=== PATIENT | female | born 1995 | race Caucasian/White ===

== ENCOUNTER 2018-01-15 11:35 | Emergency (ER) | payer OTHER ==
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
--- NOTE | 2018-01-17 07:02 | CR ---
Abdominal series: Supine and upright views of the abdomen were obtained as well as frontal view of the chest. Comparison: No prior study. Heart size and mediastinum are normal. Lungs are clear. Bowel gas pattern is normal. Minimal scoliosis is seen within the spine. No abnormal calcifications or soft tissue abnormality is seen. Impression: 1. Nothing acute is seen on abdominal series. Diagnostic code #2
== END 2018-01-15 14:40 | disposition home or self-care (01) ==
LOC: JD.ED 11:35
DX: K59.09 Other constipation (principal); Z88.0 Allergy status to penicillin; Z88.2 Allergy status to sulfonamides; Z79.899 Other long term (current) drug therapy
CPT/HCPCS: 36415; 74022; 74022-26; 80053; 81001; 83690; 84703; 85025; 99283; 99284

== ENCOUNTER 2020-03-13 15:47 | Emergency (ER) | payer MEDICAID, OTHER ==
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
== END 2020-03-13 17:00 | disposition home or self-care (01) ==
LOC: JD.ED 15:47
DX: O24.419 Gestational diabetes mellitus in pregnancy, unspecified control (principal); Z88.0 Allergy status to penicillin; Z88.2 Allergy status to sulfonamides; Z79.4 Long term (current) use of insulin
CPT/HCPCS: 82962; 99283; 99284

== ENCOUNTER 2020-07-15 16:12 | Inpatient (IN) | payer MEDICAID ==
[2020-07-15] MEDS ORDERED: Misoprostol 25 MCG (1/4 of 100 MCG) Tab VAG ONE (16:40)
[2020-07-15] MEDS ORDERED: Ondansetron 4 MG/2 ML SDV IVPUSH PRN (16:42)
[2020-07-15] MEDS ORDERED: Nalbuphine 10 MG/1 ML Vial IVPUSH PRN (16:42)
[2020-07-15] MEDS ORDERED: Misoprostol 25 MCG (1/4 of 100 MCG) Tab VAG PRN (16:42)
[2020-07-15] MEDS ORDERED: Sodium Chloride 0.9% 10 ML Syringe FLUSH PRN (16:42)
[2020-07-15] MEDS ORDERED: Oxytocin/Lactated Ringers 10 UNIT/1,000 ML BAG IV SCH ×2 (16:45)
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
[2020-07-15] MEDS ORDERED: ePHEDrine 50 MG/ML SDV IVPUSH PRN (17:57)
[2020-07-15] MEDS ORDERED: diphenhydrAMINE 50 MG/ML SDV IVPUSH PRN (17:57)
[2020-07-15] MEDS ORDERED: fentaNYL 100 MCG/2 ML SDV EPIDUR PRN (17:57)
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
[2020-07-15] MEDS: Lactated Ringers 1,000 ML IV SCH (21:50)
[2020-07-16] MEDS: Lactated Ringers 1,000 ML IV SCH ×4 (03:48→13:02)
[2020-07-16] MEDS: Bupivacaine/fentaNYL/NS 100 ML Bag EPIDUR PRN ×2 (04:21→13:02)
--- NOTE | 2020-07-16 08:36 | PCM.PNLD ---
Labor Progress Note - VS & Meds Vital Signs: Last Vital Signs Temp 36.8 C 07/15/20 16:55 Pulse 93 07/15/20 16:55 Resp 16 07/15/20 16:55 BP 111/70 07/15/20 16:55 Pulse Ox 99 07/15/20 16:55 Active Medications: Current Medications Diphenhydramine HCl (Benadryl) 25 mg IVPUSH Q6H PRN PRN Reason: pruritis Ephedrine Sulfate (Ephedrine Sulfate) 5 mg IVPUSH ASDIRECTED PRN PRN Reason: Hypotension Fentanyl (Sublimaze) 100 mcg EPIDUR Q3H PRN PRN Reason: Pain Last Admin: 07/16/20 04:20 Dose: 100 mcg Documented by: Fentanyl/Bupivacaine HCl (Fentanyl/Bupivacaine/Ns 2 Mcg-0.125% 100 Ml) 100 ml EPIDUR ASDIRECTED PRN PRN Reason: Pain Last Admin: 07/16/20 04:21 Dose: 100 ml Documented by: Lactated Ringer's (Ringers, Lactated) 1,000 mls @ 40 mls/hr IV ASDIRECTED ANDREW Last Admin: 07/16/20 04:22 Dose: 40 mls/hr Documented by: Oxytocin/Lactated Ringer's (Pitocin In Lr 10 Units/1,000 Ml) 10 unit in 1,000 mls @ 12 mls/hr IV TITRATE ANDREW; Protocol Last Titration: 07/16/20 05:55 Dose: 1 munits/min, 6 mls/hr Documented by: Oxytocin/Lactated Ringer's (Pitocin In Lr 10 Units/1,000 Ml) 10 unit in 1,000 mls @ 500 mls/hr IV .CONTINUOUS ANDREW Misoprostol (Cytotec) 25 mcg VAG Q4H PRN PRN Reason: cervical ripening Last Admin: 07/15/20 17:09 Dose: 25 mcg Documented by: Nalbuphine HCl (Nubain) 10 mg IVPUSH Q2H PRN PRN Reason: Pain Ondansetron HCl (Zofran) 4 mg IVPUSH Q4H PRN PRN Reason: Nausea/Vomiting Last Admin: 07/16/20 03:18 Dose: 4 mg Documented by: Sodium Chloride (Saline Flush) 10 ml FLUSH ASDIRECTED PRN PRN Reason: Keep Vein Open Discontinued Medications Misoprostol (Cytotec) 25 mcg VAG ONETIME ONE Stop: 07/15/20 16:41 Last Admin: 07/15/20 17:09 Dose: Not Given Documented by: - Uterine Contractions Uterine Monitoring Mode: External [place] Contraction Intensity: Moderate to Strong Uterine Resting Tone: Soft - Monitoring Monitor Mode: External Ultrasound Heart Rate (FHR) Baseline: 125 Heart Rate (FHR) Variability: Moderate (6-25 bmp) Accelerations: Present, 15x15 Decelerations: None Strip Review: Category I - Vaginal Exam Dilation (cm): 5-6 Effacement (Percent): 80 Station: -1 Cervical Position: Midposition - Labor Progress (Free Text) Labor Progress: Doing well this AM. Comfortable with epidural in place. Pitocin at 3. Was about 3 cm at 0215 when ROM performed. Now about 5-6. Continue present management. Blood sugars 100's-120
--- NOTE | 2020-07-16 14:23 | PCM.PNLD ---
Labor Progress Note - VS & Meds Vital Signs: Last Vital Signs Temp 36.8 C 07/15/20 16:55 Pulse 93 07/15/20 16:55 Resp 16 07/15/20 16:55 BP 111/70 07/15/20 16:55 Pulse Ox 99 07/15/20 16:55 Active Medications: Current Medications Diphenhydramine HCl (Benadryl) 25 mg IVPUSH Q6H PRN PRN Reason: pruritis Ephedrine Sulfate (Ephedrine Sulfate) 5 mg IVPUSH ASDIRECTED PRN PRN Reason: Hypotension Fentanyl (Sublimaze) 100 mcg EPIDUR Q3H PRN PRN Reason: Pain Last Admin: 07/16/20 04:20 Dose: 100 mcg Documented by: Fentanyl/Bupivacaine HCl (Fentanyl/Bupivacaine/Ns 2 Mcg-0.125% 100 Ml) 100 ml EPIDUR ASDIRECTED PRN PRN Reason: Pain Last Admin: 07/16/20 13:02 Dose: 100 ml Documented by: Lactated Ringer's (Ringers, Lactated) 1,000 mls @ 40 mls/hr IV ASDIRECTED ANDREW Last Admin: 07/16/20 13:02 Dose: 40 mls/hr Documented by: Oxytocin/Lactated Ringer's (Pitocin In Lr 10 Units/1,000 Ml) 10 unit in 1,000 mls @ 12 mls/hr IV TITRATE ANDREW; Protocol Last Titration: 07/16/20 13:04 Dose: 7 munits/min, 42 mls/hr Documented by: Oxytocin/Lactated Ringer's (Pitocin In Lr 10 Units/1,000 Ml) 10 unit in 1,000 mls @ 500 mls/hr IV .CONTINUOUS ANDREW Misoprostol (Cytotec) 25 mcg VAG Q4H PRN PRN Reason: cervical ripening Last Admin: 07/15/20 17:09 Dose: 25 mcg Documented by: Nalbuphine HCl (Nubain) 10 mg IVPUSH Q2H PRN PRN Reason: Pain Ondansetron HCl (Zofran) 4 mg IVPUSH Q4H PRN PRN Reason: Nausea/Vomiting Last Admin: 07/16/20 03:18 Dose: 4 mg Documented by: Sodium Chloride (Saline Flush) 10 ml FLUSH ASDIRECTED PRN PRN Reason: Keep Vein Open Discontinued Medications Misoprostol (Cytotec) 25 mcg VAG ONETIME ONE Stop: 07/15/20 16:41 Last Admin: 07/15/20 17:09 Dose: Not Given Documented by: - Uterine Contractions Uterine Monitoring Mode: External [place] Contraction Intensity: Moderate to Strong Uterine Resting Tone: Soft - Monitoring Monitor Mode: External Ultrasound Heart Rate (FHR) Baseline: 125 Heart Rate (FHR) Variability: Moderate (6-25 bmp) Accelerations: Present, 15x15 Decelerations: Early, Late, Intermittent (<50% x 20 min) Strip Review: Category II - Vaginal Exam Dilation (cm): 8-9 Effacement (Percent): 90 Station: 1 Cervical Position: Anterior - Labor Progress (Free Text) Labor Progress: Patient was pat pitocin of 9. Had a few prolonged decelerations into the 90's. Pitocin decreased. recovery noted. IUPC placed to better titrate medication. Reviewed findings with patient. Will continue to work towards a vaginal delivery
--- NOTE | 2020-07-16 16:28 | PCM.DEL ---
L & D Note - General Info Date of Service: 07/16/20 - Delivery Note Labor: Induced by ARM, Induced by Oxytocin Cervical Ripening Method: Misoprostil Delivery Outcome: Livebirth Delivery Method: Spontaneous Vaginal Delivery-Single Infant Delivery Mode: Spontaneous Nuchal Cord: None Anesthesia Type: Epidural Amniotic Fluid Description: Clear Episiotomy Type: None Laceration: 2nd Degree Suture type: Vicryl Suture size: 2-0 Placenta: Intact, Spontaneous Cord: 3 Vessels Estimated Blood Loss: 200 Resuscitation Needed: Yes : Bulb Syringe, Stimulated, Warmed, [place] Used, Warmer Used Delivery Comments (Free Text/Narrative):: The patient was pushing in the dorsal lithotomy position. Sterile vaginal exam complete/complete/+3 station. head in ROApresentation. Maternal pushing effort was good and the pelvis was felt to be adequate for an instrument assisted delivery. Given recurrent deep variables into the 70's the decision was made to proceed with vacuum assisted vaginal delivery. The mushroom cup was placed without difficulty with care to avoid the vaginal side campos at 1609. Total pressure applied 550 mm hg over 2 contractions. Total pop offs 0. Suction was removed following delivery of the head. No nuchal cord. The remainder of the infant delivered without difficulty at 1612. The umbilical cord was clamped and cut and the was taken to warmer for assessment. Cord gas segment obtained. Cord blood obtained. Placenta allowed time to separate and expelled intact. Inspection of the perineum following delivery with a 2nd degree laceration. This was repaired with a running 2-0 vicryl in the typical fashion Arterial 7.17 Venous 7.19 Vacuum Extractor Progress Note - Alternative Labor Strategies Considered Alternative Labor Strategies Considered:: Reports: Yes Strategies Considered:: Reports: Contraction Intensity Adequate, Position Changes Used to Facilitate Rotation & Descent, Empty Bladder Indications Considered:: Reports: Yes Indications:: Reports: Suspicion of Immediate or Potential Compromise Time Out:: Reports: Yes - Patient Prepared Patient Prepared:: Reports: Yes Informed Consent:: Reports: Verbal Risks: Reports: Yes Risks Include:: Reports: Laceration, Shoulder Dystocia, Maternal Injury, Other ( injury) Anesthesia/Analgesia Adequate:: Reports: Yes - Probability of Success High Probability of Success:: Reports: Yes Weight Estimated:: Reports: AGA Patient Diabetic:: Reports: Yes Pelvis Adequate:: Reports: Yes Position:: ZAYDA Asynclitic:: Reports: No Station:: +3 - Application Time Maximum Application Time & Number of Pop-Offs Predetermined:: Reports: Yes Maximum Pressure Maintained in [place] (cm Hg):: 550 Total Application Time (min): *max=20min: 3 Number of Times Cup Disengaged:: 0 Type of Vacuum Used:: Reports: Cup: Mushroom type Vacuum Extraction: Successful - Exit Strategy Exit strategy available:: Reports: Yes and resuscitation teams readily available:: Reports: Yes - General Info Date of Service: 07/16/20 - Patient Data Vitals - Most Recent: Last Vital Signs Temp 36.8 C 07/15/20 16:55 Pulse 93 07/15/20 16:55 Resp 16 07/15/20 16:55 BP 111/70 07/15/20 16:55 Pulse Ox 99 07/15/20 16:55 Weight - Most Recent: 55.338 kg I&O - Last 24 Hours: Intake & Output 07/16/20 07/16/20 07/16/20 06:59 14:59 22:59 Intake Total 1999 Balance 1999 - Problem List & Annotations (1) 37 weeks gestation of SNOMED Code(s): 84358472 Code(s): Z3A.37 - 37 WEEKS GESTATION OF Status: Acute Current Visit: Yes (2) Type 2 diabetes mellitus SNOMED Code(s): 27123906 Code(s): E11.9 - TYPE 2 DIABETES MELLITUS WITHOUT COMPLICATIONS Status: Acute Current Visit: Yes Qualifiers: Diabetes mellitus intermediate accountant insulin use: without intermediate accountant use Diabetes mellitus complication status: without complication Qualified Code(s): E11.9 - Type 2 diabetes mellitus without complications (3) History of opioid abuse SNOMED Code(s): 746993084 Code(s): F11.11 - OPIOID ABUSE, IN REMISSION Status: Acute Current Visit: Yes (4) Rubella non-immune status, antepartum SNOMED Code(s): 811528311 Code(s): O99.891 - OTH DISEASES AND CONDITIONS COMPLICATING ; Z28.3 - UNDERIMMUNIZATION STATUS Status: Acute Current Visit: Yes (5) Non-reassuring heart rate or rhythm affecting mother SNOMED Code(s): 59994341, 933508561 Code(s): O36.8390 - MATERN CARE FOR ABNLT FETL HRT RATE OR RHYM, UNSP TRI, UNSP Status: Acute Current Visit: Yes (6) Vacuum-assisted vaginal delivery SNOMED Code(s): 89296264699922020 Code(s): Z37.9 - OUTCOME OF DELIVERY, UNSPECIFIED Status: Acute Current Visit: Yes - Problem List Review Problem List Initiated/Reviewed/Updated: Yes - My Orders Last 24 Hours: My Active Orders 07/15/20 16:42 Patient Status [ADT] Routine Communication Order [RC] ASDIRECTED Communication Order [RC] ASDIRECTED Communication Order [RC] ASDIRECTED Heart Tones [RC] ASDIRECTED Monitoring [RC] INTERMITTENT Notify Provider [RC] ASDIRECTED Notify Provider [RC] PFP Notify Provider [RC] PRN Peripheral IV Care [RC] . DIRECTED Up ad Jessica [RC] ASDIRECTED Vaginal Exam [RC] ASDIRECTED Vital Signs [RC] ASDIRECTED Nalbuphine [Nubain] 10 mg IVPUSH Q2H PRN Ondansetron [Zofran] 4 mg IVPUSH Q4H PRN Sodium Chloride 0.9% [Saline Flush] 10 ml FLUSH ASDIRECTED PRN miSOPROStoL [Cytotec] 25 mcg VAG Q4H PRN Electronic Heart Tones Ext w TOCO [WOMSER] Routine Electronic Heart Tones Internal [WOMSER] Per Unit Routine Peripheral IV Insertion Adult [OM.PC] Routine Resuscitation Status Routine 07/15/20 16:44 Blood Glucose Check, Bedside [RC] Q4H 07/15/20 16:45 Lactated Ringers [Ringers, Lactated] 1,000 ml IV ASDIRECTED Oxytocin/Lactated Ringers [Pitocin in LR 10 Units/1,000 ML] 10 unit in 1,000 ml IV .CONTINUOUS Oxytocin/Lactated Ringers [Pitocin in LR 10 Units/1,000 ML] 10 unit in 1,000 ml IV TITRATE Medication Administration Instruction [OM.PC] ASDIRECTED 07/15/20 Dinner Regular Diet [DIET] - Assessment Assessment:: PPD#0 - Plan Plan:: * Routine cares * Breast feeding * Discharge home in 1-2 days
[2020-07-16] MEDS ORDERED: Docusate Sodium 100 MG Cap PO PRN (17:12)
[2020-07-16] MEDS ORDERED: Benzocaine/Menthol 20%-0.5% Spray 56 GM Canister TOP PRN (17:12)
[2020-07-16] MEDS ORDERED: Witch Hazel Medicated Pads 40/Jar TOP PRN (17:12)
[2020-07-16] MEDS: Ibuprofen 600 MG Tab PO PRN (18:01)
--- NOTE | 2020-07-16 19:16 | PCM48HPAN ---
Post Anesthesia Note - EVALUATION WITHIN 48HRS OF ANESTHETIC Vital Signs in Normal Range: Yes Patient Participated in Evaluation: Yes Respiratory Function Stable: Yes Airway Patent: Yes Cardiovascular Function Stable: Yes Hydration Status Stable: Yes Pain Control Satisfactory: Yes Nausea and Vomiting Control Satisfactory: Yes Mental Status Recovered: Yes Vital Signs: Last Vital Signs Temp 36.8 C 07/15/20 16:55 Pulse 93 07/15/20 16:55 Resp 16 07/15/20 16:55 BP 111/70 07/15/20 16:55 Pulse Ox 99 07/15/20 16:55
[2020-07-17] MEDS: Ibuprofen 600 MG Tab PO PRN ×5 (00:50→21:31)
[2020-07-17] MEDS ORDERED: Bupivacaine 0.25% 10 ML SDV ONE (06:00)
--- NOTE | 2020-07-17 10:31 | PCM.SN.2 ---
- Free Text/Narrative Note: exam Afebrile, chest clear, uterus at umbilicus -1. No heavy vaginal bleeding. No leg cramping.
[2020-07-17] MEDS: Acetaminophen 325 MG Tab PO PRN (18:36)
[2020-07-18] MEDS: Ibuprofen 600 MG Tab PO PRN ×3 (01:27→14:44)
--- NOTE | 2020-07-18 10:59 | PCM.DCSUM1 ---
Discharge Summary - Hospital Course Free Text/Narrative:: [place] [facility] L/[facility] Delivery Note Patient Name: KIA DURAND Date of : 89 Patient Status: Inpatient Attending Provider: Brooke Hackett Date: 07/16/20 16:27 Initialization Date: 07/16/20 16:27 L & D Note - General Info Date of Service: 07/16/20 - Delivery Note Labor: Induced by ARM, Induced by Oxytocin Cervical Ripening Method: Misoprostil Delivery Outcome: Livebirth Infant Delivery Method: Spontaneous Vaginal Delivery-Single Delivery Mode: Spontaneous Nuchal Cord: None Anesthesia Type: Epidural Amniotic Fluid Description: Clear Episiotomy Type: None Laceration: 2nd Degree Suture type: Vicryl Suture size: 2-0 Placenta: Intact, Spontaneous Cord: 3 Vessels Estimated Blood Loss: 200 Resuscitation Needed: Yes : Bulb Syringe, Stimulated, Warmed, Randolph Used, Warmer Used Delivery Comments (Free Text/Narrative):: The patient was pushing in the dorsal lithotomy position. Sterile vaginal exam complete/complete/+3 station. head in ROApresentation. Maternal pushing effort was good and the pelvis was felt to be adequate for an instrument assisted delivery. Given recurrent deep variables into the 70's the decision was made to proceed with vacuum assisted vaginal delivery. The mushroom cup was placed without difficulty with care to avoid the vaginal side campos at 1609. Total pressure applied 550 mm hg over 2 contractions. Total pop offs 0. Suction was removed following delivery of the head. No nuchal cord. The remainder of the delivered without difficulty at 1612. The umbilical cord was clamped and cut and the infant was taken to warmer for assessment. Cord gas segment obtained. Cord blood obtained. Placenta allowed time to separate and expelled intact. Inspection of the perineum following delivery with a 2nd degree laceration. This was repaired with a running 2-0 vicryl in the typical fashion Arterial 7.17 Venous 7.19 Vacuum Extractor Progress Note - Alternative Labor Strategies Considered Alternative Labor Strategies Considered:: Reports: Yes Strategies Considered:: Reports: Contraction Intensity Adequate, Position Changes Used to Facilitate Rotation & Descent, Empty Bladder Indications Considered:: Reports: Yes Indications:: Reports: Suspicion of Immediate or Potential Compromise Time Out:: Reports: Yes - Patient Prepared Patient Prepared:: Reports: Yes Informed Consent:: Reports: Verbal Risks: Reports: Yes Risks Include:: Reports: Laceration, Shoulder Dystocia, Maternal Injury, Other ( injury) Anesthesia/Analgesia Adequate:: Reports: Yes - Probability of Success High Probability of Success:: Reports: Yes Weight Estimated:: Reports: AGA Patient Diabetic:: Reports: Yes Pelvis Adequate:: Reports: Yes Position:: ZAYDA Asynclitic:: Reports: No Station:: +3 - Application Time Maximum Application Time & Number of Pop-Offs Predetermined:: Reports: Yes Maximum Pressure Maintained in Green Zone (cm Hg):: 550 Total Application Time (min): *max=20min: 3 Number of Times Cup Disengaged:: 0 Type of Vacuum Used:: Reports: Cup: Mushroom type Vacuum Extraction: Successful - Exit Strategy Exit strategy available:: Reports: Yes and resuscitation teams readily available:: Reports: Yes - General Info Date of Service: 07/16/20 - Patient Data Vitals - Most Recent: Last Vital Signs Temp 36.8 C 07/15/20 16:55 Pulse 93 07/15/20 16:55 Resp 16 07/15/20 16:55 BP 111/70 07/15/20 16:55 Pulse Ox 99 07/15/20 16:55 Weight - Most Recent: 55.338 kg I&O - Last 24 Hours: Intake & Output 07/16/20 07/16/20 07/16/20 06:59 14:59 22:59 Intake Total 1999 Balance 1999 - Problem List & Annotations (1) 37 weeks gestation of SNOMED Code(s): 58724085 Code(s): Z3A.37 - 37 WEEKS GESTATION OF Status: Acute Current Visit: Yes (2) Type 2 diabetes mellitus SNOMED Code(s): 70109215 Code(s): E11.9 - TYPE 2 DIABETES MELLITUS WITHOUT COMPLICATIONS Status: Acute Current Visit: Yes Qualifiers: Diabetes mellitus jail insulin use: without jail use Diabetes mellitus complication status: without complication Qualified Code(s): E11.9 - Type 2 diabetes mellitus without complications (3) History of opioid abuse SNOMED Code(s): 922024827 Code(s): F11.11 - OPIOID ABUSE, IN REMISSION Status: Acute Current Visit: Yes (4) Rubella non-immune status, antepartum SNOMED Code(s): 488320658 Code(s): O99.891 - OTH DISEASES AND CONDITIONS COMPLICATING ; Z28.3 - UNDERIMMUNIZATION STATUS Status: Acute Current Visit: Yes (5) Non-reassuring heart rate or rhythm affecting mother SNOMED Code(s): 82079368, 825811766 Code(s): O36.8390 - MATERN CARE FOR ABNLT FETL HRT RATE OR RHYM, UNSP TRI, UNSP Status: Acute Current Visit: Yes (6) Vacuum-assisted vaginal delivery SNOMED Code(s): 99381558228890292 Code(s): Z37.9 - OUTCOME OF DELIVERY, UNSPECIFIED Status: Acute Current Visit: Yes - Problem List Review Problem List Initiated/Reviewed/Updated: Yes - My Orders Last 24 Hours: My Active Orders 07/15/20 16:42 Patient Status [ADT] Routine Communication Order [RC] ASDIRECTED Communication Order [RC] ASDIRECTED Communication Order [RC] ASDIRECTED Heart Tones [RC] ASDIRECTED Monitoring [RC] INTERMITTENT Notify Provider [RC] ASDIRECTED Notify Provider [RC] PFP Notify Provider [RC] PRN Peripheral IV Care [RC] . DIRECTED Up ad Jessica [RC] ASDIRECTED Vaginal Exam [RC] ASDIRECTED Vital Signs [RC] ASDIRECTED Nalbuphine [Nubain] 10 mg IVPUSH Q2H PRN Ondansetron [Zofran] 4 mg IVPUSH Q4H PRN Sodium Chloride 0.9% [Saline Flush] 10 ml FLUSH ASDIRECTED PRN miSOPROStoL [Cytotec] 25 mcg VAG Q4H PRN Electronic Heart Tones Ext w TOCO [WOMSER] Routine Electronic Heart Tones Internal [WOMSER] Per Unit Routine Peripheral IV Insertion Adult [OM.PC] Routine Resuscitation Status Routine 07/15/20 16:44 Blood Glucose Check, Bedside [RC] Q4H 07/15/20 16:45 Lactated Ringers [Ringers, Lactated] 1,000 ml IV ASDIRECTED Oxytocin/Lactated Ringers [Pitocin in LR 10 Units/1,000 ML] 10 unit in 1,000 ml IV .CONTINUOUS Oxytocin/Lactated Ringers [Pitocin in LR 10 Units/1,000 ML] 10 unit in 1,000 ml IV TITRATE Medication Administration Instruction [OM.PC] ASDIRECTED 07/15/20 Dinner Regular Diet [DIET] - Assessment Assessment:: PPD#0 - Plan Plan:: * Routine cares * Breast feeding * Discharge home in 1-2 days HPI Initial Comments: [place] [facility] Delivery Note Patient Name: KIA DURAND Date of : 89 Patient Status: Inpatient Attending Provider: Brooke Hackett Date: 07/16/20 16:27 Initialization Date: 07/16/20 16:27 L & D Note - General Info Date of Service: 07/16/20 - Delivery Note Labor: Induced by ARM, Induced by Oxytocin Cervical Ripening Method: Misoprostil Delivery Outcome: Livebirth Delivery Method: Spontaneous Vaginal Delivery-Single Delivery Mode: Spontaneous Nuchal Cord: None Anesthesia Type: Epidural Amniotic Fluid Description: Clear Episiotomy Type: None Laceration: 2nd Degree Suture type: Vicryl Suture size: 2-0 Placenta: Intact, Spontaneous Cord: 3 Vessels Estimated Blood Loss: 200 Resuscitation Needed: Yes : Bulb Syringe, Stimulated, Warmed, Randolph Used, Warmer Used Delivery Comments (Free Text/Narrative):: The patient was pushing in the dorsal lithotomy position. Sterile vaginal exam complete/complete/+3 station. head in ROApresentation. Maternal pushing effort was good and the pelvis was felt to be adequate for an instrument assisted delivery. Given recurrent deep variables into the 70's the decision was made to proceed with vacuum assisted vaginal delivery. The mushroom cup was placed without difficulty with care to avoid the vaginal side campos at 1609. Total pressure applied 550 mm hg over 2 contractions. Total pop offs 0. Suction was removed following delivery of the head. No nuchal cord. The remainder of the infant delivered without difficulty at 1612. The umbilical cord was clamped and cut and the infant was taken to warmer for assessment. Cord gas segment obtained. Cord blood obtained. Placenta allowed time to separate and expelled intact. Inspection of the perineum following delivery with a 2nd degree laceration. This was repaired with a running 2-0 vicryl in the typical fashion Arterial 7.17 Venous 7.19 Vacuum Extractor Progress Note - Alternative Labor Strategies Considered Alternative Labor Strategies Considered:: Reports: Yes Strategies Considered:: Reports: Contraction Intensity Adequate, Position Changes Used to Facilitate Rotation & Descent, Empty Bladder Indications Considered:: Reports: Yes Indications:: Reports: Suspicion of Immediate or Potential Compromise Time Out:: Reports: Yes - Patient Prepared Patient Prepared:: Reports: Yes Informed Consent:: Reports: Verbal Risks: Reports: Yes Risks Include:: Reports: Laceration, Shoulder Dystocia, Maternal Injury, Other ( injury) Anesthesia/Analgesia Adequate:: Reports: Yes - Probability of Success High Probability of Success:: Reports: Yes Weight Estimated:: Reports: AGA Patient Diabetic:: Reports: Yes Pelvis Adequate:: Reports: Yes Position:: ZAYDA Asynclitic:: Reports: No Station:: +3 - Application Time Maximum Application Time & Number of Pop-Offs Predetermined:: Reports: Yes Maximum Pressure Maintained in Green Zone (cm Hg):: 550 Total Application Time (min): *max=20min: 3 Number of Times Cup Disengaged:: 0 Type of Vacuum Used:: Reports: Cup: Mushroom type Vacuum Extraction: Successful - Exit Strategy Exit strategy available:: Reports: Yes and resuscitation teams readily available:: Reports: Yes - General Info Date of Service: 07/16/20 - Patient Data Vitals - Most Recent: Last Vital Signs Temp 36.8 C 07/15/20 16:55 Pulse 93 07/15/20 16:55 Resp 16 07/15/20 16:55 BP 111/70 07/15/20 16:55 Pulse Ox 99 07/15/20 16:55 Weight - Most Recent: 55.338 kg I&O - Last 24 Hours: Intake & Output 07/16/20 07/16/20 07/16/20 06:59 14:59 22:59 Intake Total 1999 Balance 1999 - Problem List & Annotations (1) 37 weeks gestation of SNOMED Code(s): 06413684 Code(s): Z3A.37 - 37 WEEKS GESTATION OF Status: Acute Current Visit: Yes (2) Type 2 diabetes mellitus SNOMED Code(s): 22400648 Code(s): E11.9 - TYPE 2 DIABETES MELLITUS WITHOUT COMPLICATIONS Status: Acute Current Visit: Yes Qualifiers: Diabetes mellitus long term care administrator insulin use: without jail use Diabetes mellitus complication status: without complication Qualified Code(s): E11.9 - Type 2 diabetes mellitus without complications (3) History of opioid abuse SNOMED Code(s): 923244219 Code(s): F11.11 - OPIOID ABUSE, IN REMISSION Status: Acute Current Visit: Yes (4) Rubella non-immune status, antepartum SNOMED Code(s): 569058989 Code(s): O99.891 - OTH DISEASES AND CONDITIONS COMPLICATING ; Z28.3 - UNDERIMMUNIZATION STATUS Status: Acute Current Visit: Yes (5) Non-reassuring heart rate or rhythm affecting mother SNOMED Code(s): 76820369, 066311733 Code(s): O36.8390 - MATERN CARE FOR ABNLT FETL HRT RATE OR RHYM, UNSP TRI, UNSP Status: Acute Current Visit: Yes (6) Vacuum-assisted vaginal delivery SNOMED Code(s): 62508958914096461 Code(s): Z37.9 - OUTCOME OF DELIVERY, UNSPECIFIED Status: Acute Current Visit: Yes - Problem List Review Problem List Initiated/Reviewed/Updated: Yes - My Orders Last 24 Hours: My Active Orders 07/15/20 16:42 Patient Status [ADT] Routine Communication Order [RC] ASDIRECTED Communication Order [RC] ASDIRECTED Communication Order [RC] ASDIRECTED Heart Tones [RC] ASDIRECTED Monitoring [RC] INTERMITTENT Notify Provider [RC] ASDIRECTED Notify Provider [RC] PFP Notify Provider [RC] PRN Peripheral IV Care [RC] . DIRECTED Up ad Jessica [RC] ASDIRECTED Vaginal Exam [RC] ASDIRECTED Vital Signs [RC] ASDIRECTED Nalbuphine [Nubain] 10 mg IVPUSH Q2H PRN Ondansetron [Zofran] 4 mg IVPUSH Q4H PRN Sodium Chloride 0.9% [Saline Flush] 10 ml FLUSH ASDIRECTED PRN miSOPROStoL [Cytotec] 25 mcg VAG Q4H PRN Electronic Heart Tones Ext w TOCO [WOMSER] Routine Electronic Heart Tones Internal [WOMSER] Per Unit Routine Peripheral IV Insertion Adult [OM.PC] Routine Resuscitation Status Routine 07/15/20 16:44 Blood Glucose Check, Bedside [RC] Q4H 07/15/20 16:45 Lactated Ringers [Ringers, Lactated] 1,000 ml IV ASDIRECTED Oxytocin/Lactated Ringers [Pitocin in LR 10 Units/1,000 ML] 10 unit in 1,000 ml IV .CONTINUOUS Oxytocin/Lactated Ringers [Pitocin in LR 10 Units/1,000 ML] 10 unit in 1,000 ml IV TITRATE Medication Administration Instruction [OM.PC] ASDIRECTED 07/15/20 Dinner Regular Diet [DIET] - Assessment Assessment:: PPD#0 - Plan Plan:: * Routine cares * Breast feeding * Discharge home in 1-2 days Brief History: [facility] . L/D Delivery Note. [facility]: [id number]. Date of : [birth year]Patient Status: Inpatient. Attending Provider: Brooke Hackettcount Number: [id number]. Date: 07/16/20 16:27Initialization Date: 07/16/20 16:27. L & D Note. - General Info. Date of Service: 07/16/20. - Delivery Note. Labor: Induced by ARM, Induced by Oxytocin. Cervical Ripening Method: Misoprostil. Delivery Outcome: Livebirth. Infant Delivery Method: Spontaneous Vaginal Delivery-Single. Infant Delivery Mode: Spontaneous. Nuchal Cord: None. Anesthesia Type: Epidural. Amniotic Fluid Description: Clear. Episiotomy Type: None. Laceration: 2nd Degree. Suture type: Vicryl. Suture size: 2-0. Placenta: Intact, Spontaneous. Cord: 3 Vessels. Estimated Blood Loss: 200. Resuscitation Needed: Yes. : Bulb Syringe, Stimulated, Warmed, Randolph Used, Warmer Used. Delivery Comments (Free Text/Narrative):: The patient was pushing in the dorsal lithotomy position. Sterile vaginal exam comple te/complete/+3 station. head in ROApresentation. Maternal pushing effort was good and the pelvis was felt to be adequate for an instrument assisted delivery. Given recurrent deep variables into the 70's the decision was made to proceed with vacuum assisted vaginal delivery. The mushroom cup was placed without difficulty with care to avoid the vaginal side campos at 1609. Total pressure applied 550 mm hg over 2 contractions. Total pop offs 0. Suction was removed following delivery of the head. No nuchal cord. The remainder of the delivered without difficulty at 1612. The umbilical cord was clamped and cut and the infant was taken to warmer for assessment. Cord gas segment obtained. Cord blood obtained. Placenta allowed time to separate and expelled intact. Inspection of the perineum following delivery with a 2nd degree laceration. This was repaired with a running 2-0 vicryl in the typical fashion. Arterial 7.17. Venous 7.19. Vacuum Extractor Progress Note. - Alternative Labor Strategies Considered. Alternative Labor Strategies Considered:: Reports: Yes. Strategies Considered:: Reports: Contraction Intensity Adequate, Position Changes Used to Facilitate Rotation & Descent, Empty Bladder. Indications Considered:: Reports: Yes. Indications:: Reports: Suspicion of Immediate or Potential Compromise. Time Out:: Reports: Yes. - Patient Prepared. Patient Prepared:: Reports: Yes. Informed Consent:: Reports: Verbal. Risks: Reports: Yes. Risks Include:: Reports: Laceration, Shoulder Dystocia, Maternal Injury, Other ( injury). Anesthesia/Analgesia Adequate:: Reports: Yes. - Probability of Success. High Probability of Success:: Reports: Yes. Weight Estimated:: Reports: AGA. Patient Diabetic:: Reports: Yes. Pelvis Adequate:: Reports: Yes. Position:: ZAYDA. Asynclitic:: Reports: No. Station:: +3. - Application Time. Maximum Application Time & Number of Pop-Offs Predetermined:: Reports: Yes. Maximum Pressure Maintained in Green Zone (cm Hg):: 550. Total Application Time (min): *max=20min: 3. Number of Times Cup Disengaged:: 0. Type of Vacuum Used:: Reports: Cup: Mushroom type. Vacuum Extraction: Successful. - Exit Strategy. Exit strategy available:: Reports: Yes. and resuscitation teams readily available:: Reports: Yes. - General Info. Date of Service: 07/16/20. - Patient Data. Vitals - Most Recent: Last Vital Signs. Temp 36.8 C 07/15/20 16:55. Pulse 93 07/15/20 16:55. Resp 16 07/15/20 16:55. BP 111/70 07/15/20 16:55. Pulse Ox 99 07/15/20 16:55. Weight - Most Recent: 55.338 kg. I&O - Last 24 Hours: Intake & Output. 07/16/2012/11/2011. 06:5914:5922:59. Intake [id number]. [id number]. - Problem List & Annotations. (1) 37 weeks gestation of . SNOMED Code(s): 29546966. Code(s): Z3A.37 - 37 WEEKS GESTATION OF Status: Acute Current Visit: Yes. (2) Type 2 diabetes mellitus. SNOMED Code(s): 46302598. Code(s): E11.9 - TYPE 2 DIABETES MELLITUS WITHOUT COMPLICATIONS Status: Acute Current Visit: Yes. Qualifiers: Diabetes mellitus jail insulin use: without long term care administrator use Diabetes mellitus complication status: without complication Qualified Code(s): E11.9 - Type 2 diabetes mellitus without complications. (3) History of opioid abuse. SNOMED Code(s): 092633665. Code(s): F11.11 - OPIOID ABUSE, IN REMISSION Status: Acute Current Visit: Yes. (4) Rubella non-immune status, antepartum. SNOMED Code(s): 819730655. Code(s): O99.891 - OTH DISEASES AND CONDITIONS COMPLICATING ; Z28.3 - UNDERIMMUNIZATION STATUS Status: Acute Current Visit: Yes. (5) Non-reassuring heart rate or rhythm affecting mother. SNOMED Code(s): 74107172, 503338474. Code(s): O36.8390 - MATERN CARE FOR ABNLT FETL HRT RATE OR RHYM, UNSP TRI, UNSP Status: Acute Current Visit: Yes. (6) Vacuum-assisted vaginal delivery. SNOMED Code(s): 41305832101211658. Code(s): Z37.9 - OUTCOME OF DELIVERY, UNSPECIFIED Status: Acute Current Visit: Yes. - Problem List Review. Problem List Initiated/Reviewed/Updated: Yes. - My Orders. Last 24 Hours: My Active Orders. 07/15/20 16:42. Patient Status [ADT] Routine. Communication Order [RC] ASDIRECTED. Communication Order [RC] ASDIRECTED. Communication Order [RC] ASDIRECTED. Heart Tones [RC] ASDIRECTED. Monitoring [RC] INTERMITTENT. Notify Provider [RC] ASDIRECTED. Notify Provider [RC] PFP. Notify Provider [RC] PRN. Peripheral IV Care [RC] . DIRECTED. Up ad Jessica [RC] ASDIRECTED. Vaginal Exam [RC] ASDIRECTED. Vital Signs [RC] ASDIRECTED. Nalbuphine [Nubain] 10 mg IVPUSH Q2H PRN. Ondansetron [Zofran] 4 mg IVPUSH Q4H PRN. Sodium Chloride 0.9% [Saline Flush] 10 ml FLUSH ASDIRECTED PRN. miSOPROStoL [Cytotec] 25 mcg VAG Q4H PRN. Electronic Heart Tones Ext w TOCO [WOMSER] Routine. Electronic Heart Tones Internal [WOMSER] Per Unit Routine. Peripheral IV Insertion Adult [OM.PC] Routine. Resuscitation Status Routine. 07/15/20 16:44. Blood Glucose Check, Bedside [RC] Q4H. 07/15/20 16:45. Lactated Ringers [Ringers, Lactated] 1,000 ml IV ASDIRECTED. Oxytocin/Lactated Ringers [Pitocin in LR 10 Units/1,000 ML] 10 unit in 1,000 ml IV .CONTINUOUS. Oxytocin/Lactated Ringers [Pitocin in LR 10 Units/1,000 ML] 10 unit in 1,000 ml IV TITRATE. Medication Administration Instruction [OM.PC] ASDIRECTED. 07/15/20 Dinner. Regular Diet [DIET]. - Assessment. Assessment:: PPD#0. - Plan. Plan:: Routine cares. Breast feeding. Discharge home in 1- 2 days Diagnosis: Stroke: No - Discharge Data Discharge Date: 07/18/20 Discharge Disposition: Home, Self-Care 01 Condition: Good - Referral to Home Health Primary Care Physician: Brooke Hackett MD - Discharge Diagnosis/Problem(s) (1) 37 weeks gestation of SNOMED Code(s): 78657060 ICD Code: Z3A.37 - 37 WEEKS GESTATION OF Status: Acute Current Visit: Yes (2) History of opioid abuse SNOMED Code(s): 981975397 ICD Code: F11.11 - OPIOID ABUSE, IN REMISSION Status: Acute Current Visit: Yes (3) Non-reassuring heart rate or rhythm affecting mother SNOMED Code(s): 60870088, 405629056 ICD Code: O36.8390 - MATERN CARE FOR ABNLT FETL HRT RATE OR RHYM, UNSP TRI, UNSP Status: Acute Current Visit: Yes (4) Rubella non-immune status, antepartum SNOMED Code(s): 860699563 ICD Code: O99.891 - OTH DISEASES AND CONDITIONS COMPLICATING ; Z28.3 - UNDERIMMUNIZATION STATUS Status: Acute Current Visit: Yes (5) Type 2 diabetes mellitus SNOMED Code(s): 07794021 ICD Code: E11.9 - TYPE 2 DIABETES MELLITUS WITHOUT COMPLICATIONS Status: Acute Current Visit: Yes Qualifiers: Diabetes mellitus jail insulin use: without long term care administrator use Diabetes mellitus complication status: without complication Qualified Code(s): E11.9 - Type 2 diabetes mellitus without complications (6) Vacuum-assisted vaginal delivery SNOMED Code(s): 98672467838489967 ICD Code: Z37.9 - OUTCOME OF DELIVERY, UNSPECIFIED Status: Acute Current Visit: Yes - Patient Summary/Data Complications: none Recommended Follow-up Testing/Procedures: call Sunday for appointment Hospital Course: uneventful - Patient Instructions Diet: Usual Diet as Tolerated Driving: Do Not Drive (x48 hrs) Showering/Bathing: May Shower Notify Provider of: Fever, Increased Pain, Swelling and Redness, Drainage, Nausea and/or Vomiting - Discharge Plan *PRESCRIPTION DRUG MONITORING PROGRAM REVIEWED*: Not Applicable *COPY OF PRESCRIPTION DRUG MONITORING REPORT IN PATIENT MAIKEL: Not Applicable Home Medications: Home Meds Insulin Detemir [Levemir] 12 unit SQ BEDTIME #1 pen 03/13/20 [Rx] Insulin Detemir [Levemir] 12 units SQ BEDTIME 03/13/20 [History] Acetaminophen [Tylenol] 650 mg PO Q6H PRN tablet 07/18/20 [Rx] Benzocaine/Menthol [Dermoplast Pain Relief [place]] 1 spray TOP ASDIRECTED PRN canister 07/18/20 [Rx] Docusate Sodium [Colace] 100 mg PO BID PRN cap 07/18/20 [Rx] Ibuprofen [Motrin] 600 mg PO Q6H PRN tablet 07/18/20 [Rx] witch Rustam [Tucks] 1 pad TOP ASDIRECTED PRN pad 07/18/20 [Rx] Referrals: Brooke Hackett MD [Primary Care Provider] - (call Sunday for appointment in two weeks) - Discharge Summary/Plan Comment DC Time >30 min.: No - Patient Data Vitals - Most Recent: Last Vital Signs Temp 97.0 F 07/18/20 09:05 Pulse 96 07/18/20 09:05 Resp 14 07/17/20 05:10 BP 117/73 07/18/20 09:05 Pulse Ox 99 07/18/20 09:05 Weight - Most Recent: 122 lb I&O - Last 24 hours: Intake & Output 07/17/20 07/18/20 07/18/20 22:59 06:59 14:59 Intake Total 660 Balance 660 Lab Results - Last 24 hrs: Laboratory Results - last 24 hr 07/17/20 Range/Units 12:59 POC Glucose 97 (70-105) mg/dL Med Orders - Current: Current Medications Acetaminophen (Tylenol) 650 mg PO Q4H PRN PRN Reason: mild pain or fever Last Admin: 07/17/20 18:36 Dose: 650 mg Documented by: Benzocaine/Menthol (Dermoplast Pain Relief [place]) 0 gm TOP ASDIRECTED PRN PRN Reason: Perineal Comfort Measure Last Admin: 07/16/20 17:26 Dose: 1 applic Documented by: Docusate Sodium (Colace) 100 mg PO BID PRN PRN Reason: Constipation Ibuprofen (Motrin) 600 mg PO Q4H PRN PRN Reason: Mild pain or fever Last Admin: 07/18/20 07:25 Dose: 600 mg Documented by: Anshu Worthington) 1 pad TOP ASDIRECTED PRN PRN Reason: Perineal Comfort Measure Last Admin: 07/16/20 17:26 Dose: 1 pad Documented by: Discontinued Medications Bupivacaine HCl (Sensorcaine-Mpf 0.25%) 10 ml .ROUTE .STK-MED ONE Stop: 07/17/20 06:01 Diphenhydramine HCl (Benadryl) 25 mg IVPUSH Q6H PRN PRN Reason: pruritis Ephedrine Sulfate (Ephedrine Sulfate) 5 mg IVPUSH ASDIRECTED PRN PRN Reason: Hypotension Fentanyl (Sublimaze) 100 mcg EPIDUR Q3H PRN PRN Reason: Pain Last Admin: 07/16/20 04:20 Dose: 100 mcg Documented by: Fentanyl/Bupivacaine HCl (Fentanyl/Bupivacaine/Ns 2 Mcg-0.125% 100 Ml) 100 ml EPIDUR ASDIRECTED PRN PRN Reason: Pain Last Admin: 07/16/20 13:02 Dose: 100 ml Documented by: Lactated Ringer's (Ringers, Lactated) 1,000 mls @ 40 mls/hr IV ASDIRECTED ANDREW Last Admin: 07/16/20 13:02 Dose: 40 mls/hr Documented by: Oxytocin/Lactated Ringer's (Pitocin In Lr 10 Units/1,000 Ml) 10 unit in 1,000 mls @ 12 mls/hr IV TITRATE ANDREW; Protocol Last Titration: 07/16/20 16:15 Dose: 500 munits/min, 3,000 mls/hr Documented by: Oxytocin/Lactated Ringer's (Pitocin In Lr 10 Units/1,000 Ml) 10 unit in 1,000 mls @ 500 mls/hr IV .CONTINUOUS ANDREW Misoprostol (Cytotec) 25 mcg VAG ONETIME ONE Stop: 07/15/20 16:41 Last Admin: 07/15/20 17:09 Dose: Not Given Documented by: Misoprostol (Cytotec) 25 mcg VAG Q4H PRN PRN Reason: cervical ripening Last Admin: 07/15/20 17:09 Dose: 25 mcg Documented by: Nalbuphine HCl (Nubain) 10 mg IVPUSH Q2H PRN PRN Reason: Pain Ondansetron HCl (Zofran) 4 mg IVPUSH Q4H PRN PRN Reason: Nausea/Vomiting Last Admin: 07/16/20 03:18 Dose: 4 mg Documented by: Sodium Chloride (Saline Flush) 10 ml FLUSH ASDIRECTED PRN PRN Reason: Keep Vein Open
[2020-07-18] MEDS: Acetaminophen 325 MG Tab PO PRN (11:10)
== END 2020-07-18 17:30 | disposition home or self-care (01) | DRG 807 ==
LOC: JD.OB 16:12 → OBSVTOIN 07-16 16:12 → JD.OB 07-16 16:13
PROVIDERS: ADMIT Obstetrics & Gynecology; ATTEND Obstetrics & Gynecology
PROC: 10D07Z6 Extraction of Products of Conception, Vacuum, Via Natural or Artificial Opening (ICD-10-PCS; principal; 2020-07-16)
PROC: 0KQM0ZZ Repair Perineum Muscle, Open Approach (ICD-10-PCS; 2020-07-16)
PROC: 10907ZC Drainage of Amniotic Fluid, Therapeutic from Products of Conception, Via Natural or Artificial Opening (ICD-10-PCS; 2020-07-16)
PROC: 10H07YZ Insertion of Other Device into Products of Conception, Via Natural or Artificial Opening (ICD-10-PCS; 2020-07-16)
PROC: 3E0P7VZ Introduction of Hormone into Female Reproductive, Via Natural or Artificial Opening (ICD-10-PCS; 2020-07-16)
PROC: 3E033VJ Introduction of Other Hormone into Peripheral Vein, Percutaneous Approach (ICD-10-PCS; 2020-07-16)
PROC: 10H07YZ Insertion of Other Device into Products of Conception, Via Natural or Artificial Opening (ICD-10-PCS; 2020-07-16)
PROC: 3E0R3BZ Introduction of Anesthetic Agent into Spinal Canal, Percutaneous Approach (ICD-10-PCS; 2020-07-16)
PROC: 00HU33Z Insertion of Infusion Device into Spinal Canal, Percutaneous Approach (ICD-10-PCS; 2020-07-16)
DX: O24.92 Unspecified diabetes mellitus in childbirth (principal); Z37.0 Single live birth; Z3A.37 37 weeks gestation of pregnancy; Z79.4 Long term (current) use of insulin; Z88.0 Allergy status to penicillin; Z88.2 Allergy status to sulfonamides; O70.1 Second degree perineal laceration during delivery; Z20.828 Contact with and (suspected) exposure to other viral communicable diseases
CPT/HCPCS: 01967; 36415; 51701; 51702; 59025; 59409; 80306; 82962; 85027; 86592; 86850; 86900; 86901; A9270-GY; J2405; J2590; J3010; J3490; J7120; U0002

== ENCOUNTER 2021-11-05 07:03 | Inpatient (IN) | payer MEDICAID ==
[2021-11-05] MEDS ORDERED: Lidocaine 1% 50 ML MDV INJECT ONE (07:26)
[2021-11-05] MEDS ORDERED: Ondansetron 4 MG/2 ML SDV IVPUSH PRN (07:26)
[2021-11-05] MEDS ORDERED: Sodium Chloride 0.9% 10 ML Syringe FLUSH PRN (07:26)
[2021-11-05] MEDS ORDERED: Calcium Carbonate 500 MG Tab.Chew PO PRN (07:26)
[2021-11-05] MEDS ORDERED: Nalbuphine 10 MG/1 ML Vial IVPUSH PRN (07:26)
[2021-11-05] MEDS ORDERED: Oxytocin/Lactated Ringers 10 UNIT/1,000 ML BAG IV SCH ×3 (07:30→19:25)
[2021-11-05] MEDS: Lactated Ringers 1,000 ML IV SCH ×3 (08:42→13:55)
[2021-11-05] MEDS ORDERED: Sodium Chloride 0.9% 10 ML Syringe FLUSH SCH (09:00)
[2021-11-05] MEDS ORDERED: fentaNYL 100 MCG/2 ML SDV EPIDUR PRN (10:56)
[2021-11-05] MEDS ORDERED: diphenhydrAMINE 50 MG/ML SDV IVPUSH PRN (10:56)
[2021-11-05] MEDS ORDERED: Bupivacaine/fentaNYL/NS 100 ML Bag EPIDUR PRN (10:56)
[2021-11-05] MEDS ORDERED: ePHEDrine 50 MG/ML SDV IVPUSH PRN (10:56)
[2021-11-05] MEDS ORDERED: Bupivacaine 0.25% 10 ML SDV ONE (11:00)
[2021-11-05] MEDS ORDERED: Benzocaine/Menthol 20%-0.5% Spray 78 GM Cannister TOP PRN (19:25)
[2021-11-05] MEDS ORDERED: Witch Hazel Medicated Pads 40/Jar TOP PRN (19:25)
[2021-11-05] MEDS ORDERED: Docusate Sodium 100 MG Cap PO PRN (19:25)
[2021-11-05] MEDS ORDERED: Hydrocortisone Acetate 25 MG Supp RECTAL PRN (19:25)
[2021-11-05] MEDS ORDERED: Measles, Mumps & Rubella Vaccine 0.5 ML SDV SUBCUT ONE (19:25)
[2021-11-05] MEDS ORDERED: Magnesium Hydroxide 400 MG/5 ML Susp 30 ML Cup PO PRN (19:25)
[2021-11-05] MEDS: Ibuprofen 600 MG Tab PO PRN (21:22)
[2021-11-06] MEDS: Acetaminophen 325 MG Tab PO PRN ×2 (08:52→15:08)
[2021-11-06] MEDS ORDERED: Prenatal Multivitamin with Calcium/Folic Acid/Iron Tab PO SCH (09:00)
[2021-11-06] MEDS: Ibuprofen 600 MG Tab PO PRN ×2 (11:06→17:16)
== END 2021-11-06 19:05 | disposition home or self-care (01) | DRG 807 ==
LOC: JD.OB 07:03 → OBSVTOIN 18:16 → JD.OB 18:16
PROVIDERS: ADMIT Obstetrics & Gynecology; ATTEND Obstetrics & Gynecology
PROC: 10E0XZZ Delivery of Products of Conception, External Approach (ICD-10-PCS; principal; 2021-11-05)
PROC: 0KQM0ZZ Repair Perineum Muscle, Open Approach (ICD-10-PCS; 2021-11-05)
PROC: 10907ZC Drainage of Amniotic Fluid, Therapeutic from Products of Conception, Via Natural or Artificial Opening (ICD-10-PCS; 2021-11-05)
PROC: 3E033VJ Introduction of Other Hormone into Peripheral Vein, Percutaneous Approach (ICD-10-PCS; 2021-11-05)
PROC: 3E0R3BZ Introduction of Anesthetic Agent into Spinal Canal, Percutaneous Approach (ICD-10-PCS; 2021-11-05)
DX: O24.92 Unspecified diabetes mellitus in childbirth (principal); Z37.0 Single live birth; O70.1 Second degree perineal laceration during delivery; O99.62 Diseases of the digestive system complicating childbirth; K21.9 Gastro-esophageal reflux disease without esophagitis; Z20.822 Contact with and (suspected) exposure to COVID-19; K59.09 Other constipation; Z3A.37 37 weeks gestation of pregnancy; Z88.0 Allergy status to penicillin; Z82.2 Family history of deafness and hearing loss
CPT/HCPCS: 36415; 51702; 59025; 59409; 80306; 82947; 85025; 86592; 93005; A9270-GY; J2590; J3010; J3490; J7120; U0002

== ENCOUNTER 2024-05-12 19:58 | Emergency (ER) | payer SELFPAY ==
[2024-05-12 21:10] LABS: BASOPHILS ABSOLUTE AUTO 0.1 K/mm3 (0.0-0.2); BASOPHILS PERCENT AUTO 1.2 % (0.0-1.0); EOSINOPHILS ABSOLUTE AUTO 0.1 K/mm3 (0.0-0.4); EOSINOPHILS PERCENT AUTO 2.4 % (0.0-6.0); HEMATOCRIT 37.7 % (37.0-47.0); HEMOGLOBIN 12.5 gm/dl (12.0-16.0); IMMATURE GRAN ABSOLUTE AUTO 0.01 K/mm3 (0.00-0.05); IMMATURE GRAN PERCENT AUTO 0.2 % (0.0-0.4); LYMPHOCYTES ABSOLUTE AUTO 1.9 K/mm3 (1.0-4.8); LYMPHOCYTES PERCENT AUTO 38.1 % (24.0-44.0); MEAN CORPUSCULAR HEMOGLOBIN 29.7 pg (28.0-32.0); MEAN CORPUSCULAR HGB CONC 33.2 g/dl (32.0-36.0); MEAN CORPUSCULAR VOLUME 89.5 fl (83.0-99.0); MONOCYTES ABSOLUTE AUTO 0.6 K/mm3 (0.0-0.8); MONOCYTES PERCENT AUTO 12.4 % (0.0-8.0); NEUTROPHILS ABSOLUTE AUTO 2.3 K/mm3 (1.8-7.7); NEUTROPHILS PERCENT AUTO 45.7 % (41.0-71.0); PLATELET COUNT,PLT 240 K/mm3 (150-400); RED BLOOD CELL COUNT 4.21 M/mm3 (4.10-5.30); WHITE BLOOD CELL COUNT,WBC 5.07 K/mm3 (3.9-11.3)
[2024-05-12 21:46] LABS: ALANINE AMINOTRANSFERASE,ALT 22 U/L (14-59); ALBUMIN 3.5 g/dl (3.4-5.0); ALKALINE PHOSPHATASE 99 U/L (46-116); ANION GAP 11.7 (5-15); ASPARTATE AMNIOTRANSFERASE,AST 11 U/L (15-37); BILIRUBIN TOTAL 0.2 mg/dL (0.2-1.0); BLOOD UREA NITROGEN,BUN 8 mg/dL (7-18); BUN/CREATININE RATIO 11.4 (14-18); CALCIUM 9.1 mg/dL (8.5-10.1); CARBON DIOXIDE,CO2 28 mEq/L (21-32); CHLORIDE,CL 105 mEq/L (98-107); CREATININE 0.7 mg/dL (0.55-1.02); EST CRCL DRUG DOSING (CG) 84.41 mL/min; ESTIMATED GFR 119 mL/min (>60); GLUCOSE RANDOM 132 mg/dL (70-99); POTASSIUM,K 3.7 mEq/L (3.5-5.1); PROTEIN TOTAL,TP 7.2 g/dl (6.4-8.2); SODIUM,NA 141 mEq/L (136-145)
[2024-05-12 21:52] LABS: HCG QUANTITATIVE < 1.0 mIU/mL
== END 2024-05-12 22:37 | disposition home or self-care (01) ==
LOC: JD.ED 19:58
DX: N92.0 Excessive and frequent menstruation with regular cycle (principal); E11.9 Type 2 diabetes mellitus without complications; Z86.16 Personal history of COVID-19; Z79.899 Other long term (current) drug therapy; Z88.0 Allergy status to penicillin; Z88.2 Allergy status to sulfonamides; Z88.8 Allergy status to other drugs, medicaments and biological substances
CPT/HCPCS: 36415; 80053; 84702; 85025; 99283; 99284